=== PATIENT | male | born 1960 | race Caucasian/White ===

== ENCOUNTER 2024-08-26 20:53 | Emergency (ER) | payer MEDICARE, OTHER ==
[~2024-08-26] VITALS: Ht 172.7 cm; Wt 79.4 kg
[2024-08-26 21:01] VITALS: BP 150/95
[2024-08-26 22:11] LABS: Source, Urine Clean Catch
[2024-08-26 22:13] LABS: Bilirubin, Urine Neg (Neg); Blood, Urine 3+ (Neg); Glucose Qualitative, Urine 4+ (Neg); Ketones, Urine 1+ (Neg); Leukocyte Esterase, Urine Neg (Neg); Nitrite, Urine Neg (Neg); Protein, Urine Neg (Neg); Urobilinogen, Urine NORM (Normal)
[2024-08-26 22:40] LABS: Appearance, Urine Clear (Clear); Bacteria Not Seen /hpf; Color, Urine Yellow (P-Yellow); Squamous Epithelial Cells Not Seen /hpf (Few); White Blood Cells, Urine Not Seen /hpf (0-5)
== END 2024-08-26 23:50 | disposition home or self-care (01) ==
LOC: ER 20:53
PROVIDERS: Student in an Organized Health Care Education/Training Program
DX: R31.9 Hematuria, unspecified (principal); Z88.5 Allergy status to narcotic agent
CPT/HCPCS: 81001; 99283

== ENCOUNTER 2025-01-06 11:58 | Inpatient (IN) | payer OTHER, MEDICARE ==
[2025-01-06] VITALS (14 sets, daily range): BP systolic 128–165; BP diastolic 89–107
[~2025-01-06] VITALS: Ht 175.3 cm; Wt 86.5 kg
[2025-01-06 13:09] LABS: Hematocrit 54.6 % (37.0-53.0); Hemoglobin 18.7 g/dL (13.5-17.5); Mean Corpuscular HGB Conc 34.2 g/dL (31.5-36.5); Mean Corpuscular Volume 90 fL (80-100); Mean Platelet Volume 10.1 fL (9.1-12.4); Platelet Count 396 K/mm3 (150-400); RDW Coefficient Variation 12.3 % (11.7-14.2); RDW Standard Deviation 40.2 fL (35.1-46.3); Red Blood Cell Count 6.04 M/mm3 (4.30-5.90); White Blood Cell Count 30.21 K/mm3 (4.00-11.30)
[2025-01-06 13:38] LABS: BAND PERCENT MAN 21 % (0-8); BASOPHILS PERCENT MAN 0 % (0-2); EOSINOPHILS PERCENT MAN 0 % (0-6); LYMPHOCYTES ABSOLUTE MAN 4.22 K/mm3 (0.84-5.20); LYMPHOCYTES PERCENT MAN 14 % (21-46); METAMYELOCYTE PERCENT MAN 2 % (0-0); MONOCYTES ABSOLUTE MAN 3.02 K/mm3 (0.16-1.47); MONOCYTES PERCENT MAN 10 % (4-13); NEUTROPHILS ABSOLUTE MAN 22.35 K/mm3 (1.96-9.15); SEG NEUTROPHILS PERCENT MAN 53 % (41-73); TOTAL CELLS COUNTED 100
[2025-01-06 13:43] LABS: Albumin, Blood 2.7 g/dL (3.4-5.0); Albumin/Globulin Ratio 0.4 (0.8-1.8); Beta-hydroxybutyrate 81.8 mg/dL (0.2-2.8); Bilirubin, Total 0.8 mg/dL (0.1-1.0); Bun/Creatinine Ratio 24.1 (12.0-20.0); Calcium, Blood 9.6 mg/dL (8.5-10.1); Creatinine, Blood 1.16 mg/dL (0.60-1.20); Globulin, Blood 6.1 g/dL (2.2-4.0); Potassium, Blood 3.6 mmol/L (3.5-5.5); Total Protein, Blood 8.8 g/dL (6.4-8.2)
[2025-01-06] MEDS ORDERED: CefTRIAXone Sodium 2,000 MG in NS 100 ML IV ONE (15:05)
[2025-01-06] MEDS ORDERED: Azithromycin 500 MG in NS 250 ML IV ONE (15:05)
[2025-01-06] MEDS ORDERED: NS 1,000 ML IV SCH ×2 (15:05→16:00)
[2025-01-06] MEDS ORDERED: Ipratropium/Albuterol SulF 2.5-0.5MG/3 ML Amp INH ONE (15:05)
[2025-01-06 15:31] LABS: pH Blood Venous 7.03 (7.34-7.37)
[2025-01-06 15:32] LABS: PCO2 Venous 33.7 mmHg (38-42)
[2025-01-06 15:33] LABS: Bicarbonate Venous 10.1 mmol/L (24.0-30.0)
[2025-01-06] MEDS ORDERED: Potassium Chl 20MEQ/Water100ML 100 ML IV SCH (15:40)
[2025-01-06] MEDS ORDERED: NS KCL 40 mEq 1,000 ML IV SCH (15:45)
[2025-01-06] MEDS ORDERED: Insulin Human Regular 100 UNIT in NS 100 ML IV SCH (15:45)
[2025-01-06] MEDS ORDERED: Potassium Chloride 40 MEQ in NS 250 ML IV ONE (15:50)
[2025-01-06] MEDS ORDERED: D5W-1/2NS KCl 20mEq 1,000 ML IV SCH (15:55)
[2025-01-06 15:59] LABS: CORONAVIRUS COVID-19 AG Negative (NEGATIVE); INFLUENZA A AG Negative (NEGATIVE); INFLUENZA B AG Negative (NEGATIVE)
[2025-01-06 16:01] LABS: Phosphorus, Blood 6.6 mg/dL (2.5-4.9)
[2025-01-06] MEDS ORDERED: Lactated Ringer's 1,000 ML IV SCH (16:05)
[2025-01-06] MEDS ORDERED: Meropenem 2,000 MG in NS 250 ML IV SCH (16:15)
[2025-01-06] MEDS ORDERED: Vancomycin HCL 2,000 MG in NS 500 ML IV ONE (16:20)
--- NOTE | 2025-01-06 16:22 | NUR ---
Pt. is awake in bed in ER. Family is at bedside and welcomed my visit. Facilitated a short life review. Family verbalized that they have been wating for several hours. Seek to normalize the Pt. experience. Prayed with the Pt. Family verbalized gratitude for the spiritual care visit. Family verbalized an expectation of being admitted to ICU. Will remain available to the Pt. and family.
[2025-01-06] MEDS ORDERED: Sodium Bicarb 8.4% 1 MEQ/ML 50 ML Vial IV ONE (17:00)
[2025-01-06 17:11] LABS: Source, Urine Clean Catch
[2025-01-06] MEDS ORDERED: FLU VACC TS2024-25(6MOS UP)/PF 45 MCG/0.5 ML SYRINGE IM ONE (17:15)
[2025-01-06 17:24] LABS: Appearance, Urine Clear (Clear); Bilirubin, Urine Neg (Neg); Blood, Urine 3+ (Neg); Glucose Qualitative, Urine 4+ (Neg); Ketones, Urine 3+ (Neg); Leukocyte Esterase, Urine Neg (Neg); Nitrite, Urine Neg (Neg); Protein, Urine 2+ (Neg); Specific Gravity, Urine 1.015 (1.003-1.022); Urobilinogen, Urine NORM (Normal)
[2025-01-06 18:08] LABS: Color, Urine Pale Yellow (P-Yellow)
[2025-01-06 18:09] LABS: Bacteria Few /hpf; Granular Casts 0-2 /lpf (0); Hyaline Casts 0-2 /lpf (0-2); Squamous Epithelial Cells Few /hpf (Few); White Blood Cells, Urine 0-2 /hpf (0-5)
[2025-01-06] MEDS ORDERED: Albuterol 2.5 MG/3 ML VIAL INH ONE (19:05)
[2025-01-06] MEDS ORDERED: Clindamycin 900mg in D5W 50ML 50 ML IV ONE (19:05)
[2025-01-06 19:11] LABS: Base Excess Venous -12.3 mmol/L; PCO2 Venous 44.8 mmHg (38-42)
[2025-01-06 19:12] LABS: pH Blood Venous 7.17 (7.34-7.37)
[2025-01-06] MEDS ORDERED: Lactated Ringer's 1,000 ML IV ONE ×2 (20:45→20:55)
[2025-01-06] MEDS ORDERED: FentaNYL Citrate 50 MCG/ML 2 ML Injection ONE (20:57)
[2025-01-06 21:00] LABS: Adenovirus DNA Not Detected (NOT DETECT); Chlamydia pneumonia Not Detected (NOT DETECT); Human Coronavirus RNA Not Detected (NOT DETECT); Human Metapneumovirus RNA Not Detected (NOT DETECT); Influenza virus B RNA Not Detected (NOT DETECT); Legionella pneumophila Not Detected (NOT DETECT); Mycoplasma pneumoniae Not Detected (NOT DETECT); Parainfluenza virus RNA Not Detected (NOT DETECT); Respiratory syncytial Vir RNA Not Detected (NOT DETECT); Rhinovirus+Enterovirus RNA Not Detected (NOT DETECT); Staphylococcus aureus DNA Detected Bin >=10^7 copy/mL (NOT DETECT); mecA/C and MREJ Resist Gene Detected
[2025-01-06] MEDS ORDERED: Docusate Sodium 100 MG Cap PO SCH (21:00)
[2025-01-06] MEDS ORDERED: Lactobacil 2-S.Thermo-Bifido 1 1 Cap PO SCH (21:00)
[2025-01-06] MEDS ORDERED: Oseltamivir Phosphate 75 MG Cap PO SCH (21:00)
[2025-01-06 21:01] LABS: Acinetobacter baumannii DNA Not Detected copy/mL (NOT DETECT); Enterobacter cloacae DNA Not Detected copy/mL (NOT DETECT); Escherichia coli DNA Not Detected copy/mL (NOT DETECT); Haemophilus influenzae DNA Not Detected copy/mL (NOT DETECT); Klebsiella aerogenes DNA Not Detected copy/mL (NOT DETECT); Klebsiella oxytoca DNA Not Detected copy/mL (NOT DETECT); Klebsiella pneumoniae DNA Not Detected copy/mL (NOT DETECT); Moraxella catarrhalis DNA Not Detected copy/mL (NOT DETECT); Proteus sp DNA Not Detected copy/mL (NOT DETECT); Pseudomonas aeruginosa DNA Not Detected copy/mL (NOT DETECT); Serratia marcescens DNA Not Detected copy/mL (NOT DETECT); Streptococcus agalactiae DNA Not Detected copy/mL (NOT DETECT); Streptococcus pneumoniae DNA Not Detected copy/mL (NOT DETECT); Streptococcus pyogenes DNA Not Detected copy/mL (NOT DETECT)
[2025-01-06] MEDS ORDERED: FentaNYL Citrate 50 MCG/ML 2 ML Injection IV ONE (21:55)
[2025-01-06] MEDS ORDERED: FentaNYL Citrate 50 MCG/ML 2 ML Injection IV PRN (21:55)
[2025-01-06 22:10] LABS: Bun/Creatinine Ratio 28.9 (12.0-20.0); Calcium, Blood 8.6 mg/dL (8.5-10.1); Creatinine, Blood 1.14 mg/dL (0.60-1.20); Potassium, Blood 3.7 mmol/L (3.5-5.5)
[2025-01-06 23:04] LABS: Albumin, Body Fluid 2.2 g/dL; Glucose, Body Fluid 184 mg/dL; Triglycerides, Body Fluid 64 mg/dL
[2025-01-07] VITALS (60 sets, daily range): BP systolic 100–173; BP diastolic 57–102
[2025-01-07 00:14] LABS: Protein, Body Fluid 5.5 g/dL
[2025-01-07 00:18] LABS: Automated BF RBC Count 0.067 M/mm3 (0-0)
[2025-01-07 00:19] LABS: Body Fluid WBC Count 101720 /mm3 (0-999); RBC Count, Body Fluid 67000 /mm3 (0-0)
[2025-01-07 00:54] LABS: Lactate Dehydrogenase, Body Fl 6121 U/L
[2025-01-07 01:06] LABS: Appearance, Body Fluid Turbid (Clear); Color, Body Fluid Yellow (None-Yellow); Total Cell Count, Body Fluid 100
[2025-01-07] MEDS ORDERED: Clindamycin 900mg in D5W 50ML 50 ML IV SCH (01:30)
[2025-01-07 02:25] LABS: Magnesium, Blood 2.3 mg/dL (1.6-2.4)
--- NOTE | 2025-01-07 02:41 | NUR ---
ADMIT 2029 RECEIVED PT FROM ED VIA STRETCHER, PT TRANSFERRED TO ICU BED ROOM 7, TACHYCARDIC 115-140s, HYPERTENSIVE, AFEBRILE, TACHYPNEIC RESP RATE 38-50s WITH NOTED LABORED BREATHING, ABD AND SHOULDER ACCESSORY MUSCLE USE, ON BIPAP FIO2 40%, SPO2>90%, INSULIN INFUSING AT 3.8 UNITS/HR, D4 1/2 NS WITH 20 KCL INFUSING AT 150 ML/HR DR MCMAHON AT BEDSIDE 2044 LR STARTED AND INFUSING WIDE OPEN PER DR MCMAHON 2099 PT MEDICATED WITH 25 MCG FENTANYL IVP PRIOR TO THORACENTESIS WITH CHEST TUBE PLACEMENT [address] MCMAHON TO LEFT CHEST WITH NOTED MILKY YELLOW DRAINAGE, PT HUA WELL 2123 1000 ML MILKY YELLOW DRAINAGE NOTED IN CHEST TUBE CANNISTER, CXR DONE AT THIS TIME, CHEST TUBE DRAINANGE SENT TO LAB PER DR MCMAHON 2199 LR COMPLETED 2299 PT INCONTINENT OF URINE, GOWN AND SHEETS CHANGED, CONDOMN CATH PLACED 44 PT PULLED OFF CONDOM CATH AND INCONTINENT OF URINE, PULLED OFF BIPAP AND YELLING OUT "DAMN IT" GOWN AND SHEETS CHANGED, MALE PUREWICK PLACED AT THIS TIME 0130 PT PULLED OFF BIPAP AND YELLING FOR SOMETHING TO DRINK, EXPLAINED DKA PROTOCOL AND ORDERS FOR NPO, PT REFUSING TO PUT BIPAP MASK BACK ON WITHOUT 1/2 GLASS OF WATER TO DRINK, O2 SAT 87%, PT GIVEN MOISTENED MOUTH SWABS X2 AND THEN AGREED TO PUT BIPAP BACK ON
[2025-01-07 02:45] LABS: Bun/Creatinine Ratio 34.4 (12.0-20.0); Calcium, Blood 8.7 mg/dL (8.5-10.1); Creatinine, Blood 0.79 mg/dL (0.60-1.20); Potassium, Blood 3.3 mmol/L (3.5-5.5)
[2025-01-07 02:46] LABS: Phosphorus, Blood 0.9 mg/dL (2.5-4.9)
[2025-01-07] MEDS ORDERED: Sodium Phosphate 30 MM in Dextrose 5% 500 ML IV ONE (03:15)
--- NOTE | 2025-01-07 06:15 | NUR ---
UPDATE PT RESTING IN BED WITH EYES CLOSED ON BIPAP FIO2 40%, SPO2 >90%, PT REMAINS TACHYPNEIC WITH LESS EFFORT NOTED, RESP RATE 28-40s, TACHYCARDIC 118-130s, BP STABLE MAP >65, LEFT CHEST TUBE PATENT AND DRAINING MILKY YELLOW DRAINAGE, DRESSING CDI, POWERGLIDE TO LEFT UPPER ARM PATENT, PIV TO RIGHT AC AND RIGHT FOREARM PATENT, INSULIN INFUSING PER DKA MANAGEMENT, D5 1/2 NS WITH 20 KCL INFUSING AT 150 ML/HR, SODIUM PHOSPHATE INFUSING PER EMAR FOR PHOSPHATE REPLACEMENT, MALE PUREWICK IN PLACE AND PATENT WITH NOTED DARK CLOUDY URINE IN CANNISTER,PT REMAINS ALERT AND ORIENTED WHEN AWAKE, AROUSES EASILY TO VERBAL STIMULI SIDE RAILS UP X2, CALL LIGHT IN REACH
[2025-01-07 06:16] LABS: Hematocrit 42.4 % (37.0-53.0); Hemoglobin 15.5 g/dL (13.5-17.5); Mean Corpuscular HGB 30.8 pg (26.0-34.0); Mean Corpuscular HGB Conc 36.6 g/dL (31.5-36.5); Mean Platelet Volume 9.7 fL (9.1-12.4); Platelet Count 310 K/mm3 (150-400); RDW Coefficient Variation 12.2 % (11.7-14.2); Red Blood Cell Count 5.04 M/mm3 (4.30-5.90); White Blood Cell Count 13.08 K/mm3 (4.00-11.30)
[2025-01-07 06:32] LABS: Albumin, Blood 1.8 g/dL (3.4-5.0); Albumin/Globulin Ratio 0.5 (0.8-1.8); Bilirubin, Total 0.4 mg/dL (0.1-1.0); Bun/Creatinine Ratio 30.1 (12.0-20.0); Calcium, Blood 8.6 mg/dL (8.5-10.1); Creatinine, Blood 0.83 mg/dL (0.60-1.20); Globulin, Blood 3.8 g/dL (2.2-4.0); Magnesium, Blood 2.5 mg/dL (1.6-2.4); Phosphorus, Blood 2.1 mg/dL (2.5-4.9); Potassium, Blood 3.3 mmol/L (3.5-5.5)
[2025-01-07 06:35] LABS: Total Protein, Blood 5.6 g/dL (6.4-8.2)
[2025-01-07 06:39] LABS: Mean Corpuscular Volume 84 fL (80-100)
[2025-01-07] MEDS ORDERED: Potassium Chl 20MEQ/Water100ML 100 ML IV SCH (06:45)
[2025-01-07 07:29] LABS: BAND PERCENT MAN 48 % (0-8); BASOPHILS PERCENT MAN 0 % (0-2); EOSINOPHILS PERCENT MAN 0 % (0-6); LYMPHOCYTES ABSOLUTE MAN 2.35 K/mm3 (0.84-5.20); LYMPHOCYTES PERCENT MAN 18 % (21-46); METAMYELOCYTE ABSOLUTE MAN 0.39 K/mm3 (0.00-0.00); METAMYELOCYTE PERCENT MAN 3 % (0-0); MONOCYTES ABSOLUTE MAN 0.91 K/mm3 (0.16-1.47); MONOCYTES PERCENT MAN 7 % (4-13); MYELOCYTE ABSOLUTE MAN 0.13 K/mm3 (0.00-0.00); MYELOCYTE PERCENT MAN 1 % (0-0); NEUTROPHILS ABSOLUTE MAN 9.28 K/mm3 (1.96-9.15); SEG NEUTROPHILS PERCENT MAN 23 % (41-73); TOTAL CELLS COUNTED 100
--- NOTE | 2025-01-07 07:56 | NUR ---
0730 assumed pt care PATIENT ALERT AND ORIENTED, PT ON BIPAP RR HIGH 30'S. PT HAS IV FLUIDS WITH POTASSIUM AND HE IS GETTING EXTRA POTASSIUM CHL IV ALONG WITH SODIUM PHOS. PT IS ON AN INSULIN GTT GLUCOSE LOW 200'S AND RATE DOWN FROM 6.8 TO 5.1 U/HR PT HAS PURWICK ON FOR INCONTINENCE AND A CHEST TUBE TO LEFT CHEST WALL WITH YELLOW THICK OUTPUT. PT COMPLAINS OF MILD PAIN TO RIBS/CHEST PAINTING. HE DOES HAVE A VERY COURSE COUGH AND COURSE LUNG SOUNDS T/O. PT IS TACHYCARDIC AT 130 SINUS HOWEVER AND BP MAP GREATER THAN 65.
[2025-01-07] MEDS ORDERED: Vancomycin HCL 1,000 MG in NS 250 ML IV SCH ×2 (08:00→17:00)
[2025-01-07] MEDS ORDERED: Enoxaparin 40 MG/0.4 ML SYR SC SCH (09:00)
[2025-01-07 09:19] LABS: Bicarbonate Venous 20.7 mmol/L (24.0-30.0); pH Blood Venous 7.39 (7.34-7.37)
[2025-01-07 09:20] LABS: Base Excess Venous -5.7 mmol/L
[2025-01-07] MEDS ORDERED: Alteplase 1 MG/ML 10 MG,NS 30 ML in Syringe 1 SYR XX SCH (11:00)
[2025-01-07] MEDS ORDERED: Dornase Alfa 5 MG,NS 25 ML in Syringe 1 SYR XX SCH (11:00)
[2025-01-07 11:49] LABS: Calcium, Blood 7.8 mg/dL (8.5-10.1); Creatinine, Blood 0.8 mg/dL (0.60-1.20); Potassium, Blood 3.9 mmol/L (3.5-5.5)
[2025-01-07] MEDS ORDERED: Insulin Glargine-Yfgn 100 Unit/mL 3 ML SYR SC SCH (14:00)
[2025-01-07] MEDS ORDERED: Insulin Human Lispro 100 Units/ML 3ML Syringe SC SCH (16:30)
[2025-01-07 17:26] LABS: Bun/Creatinine Ratio 28.4 (12.0-20.0); Calcium, Blood 7.8 mg/dL (8.5-10.1); Creatinine, Blood 0.77 mg/dL (0.60-1.20); Potassium, Blood 3.6 mmol/L (3.5-5.5)
--- NOTE | 2025-01-07 18:30 | NUR ---
END OF SHIFT NOTE: PT HAS HAD A FULL DAY. HE STARTED THE DAY ON AN INSULIN GTT AND GETTING IV FLUIDS WITH POTASSIUM AND GETTING EXTRA POTASSIUM CHLORIDE AND SODIUM PHOS. PT IS NOW OFF THE INSULIN GTT AND AND ON A SLIDING SCALE (LOW). PT HAS GOTTEN MULTIPLE ANTIBIOTICS TODAY T/O THE DAY. PT WAS ABLE TO GET OFF THE BIPAP AND IS NOW ON AIRVO 50L48% RR STILL IN THE 30'S. HIS CHEST TUBE WAS FLUSHED TODAY BY DR MCMAHON ONCE WITH 40ML OF NORMAL SALINE AND TWICE WITH TPA. ( SEE MAR ) PT HAD THICK CREAMY SEROUS OUTPUT FROM THE CHEST TUBE AND THEN AFTER THE TPA WAS INFUSED THE THE OUTPUT IS NOW MORE PINK IN COLOR. PT'S SPUTUM WAS SENT OFF THIS EVENING TO LAB. OUTPUT HAS BEEN GOOD FROM MALE SEVEN. FAMILY WAS IN AT BEDSIDE TODAY AND SISTER OUT OF TOWN WAS UPDATED.
--- NOTE | 2025-01-07 21:01 | NUR ---
ASSUMPTION OF CARE ASSUMED CARE OF PATIENT AT APPROXIMATELY 2000 FROM [facility] RN. PT RESTING IN BED, ALERT AND ORIENTED X4. PT ANSWERS QUESTIONS APPROPRIATLEY, FOLLOWS DIRECTION WHEN PROMPTED AND IS ABLE TO MAKE HIS NEEDS KNOWN. PT WEAK BUT MOVES EXTREMITIES EQUALLY BILATERALLY. HR 110'S SINUS, MAP >65. CHEST TUBE SECURED IN PLACE TO LEFT CHEST WITH SEROSANGUINEOUS DRAINAGE LARGE FLESHY LIKE SEDIMENT NOTED IN TUBE, NO CREPITUS NOTED. PT ON AIRVO 50L 37%, OXYGEN SATURATION >92%. PT LUNG SOUNDS COURSE THROUGHOUT, WET SOUNDING COUGH, SOME RED TINGED SPUTUM NOTED IN EMESIS BAG. ABDOMEN SOFT, BOWEL TONES ACTIVE THROUGHOUT, TENDER TO PALPATION. MALE PUREWICK IN PLACE PATENT DRAINING YELLOW URINE. PIV IN PLACE TO LFA, RFA AND RAC. POWERGLIDE IN PLACE TO ESTELLA, NS INFUSING TKO. BED IN LOWEST POSITION, CALL LIGHT WITHIN REACH, CARE CONTINUES.
[2025-01-07 23:05] LABS: Albumin, Blood 1.5 g/dL (3.4-5.0); Albumin/Globulin Ratio 0.4 (0.8-1.8); Bilirubin, Total 0.5 mg/dL (0.1-1.0); Bun/Creatinine Ratio 26.5 (12.0-20.0); Calcium, Blood 8.3 mg/dL (8.5-10.1); Creatinine, Blood 0.87 mg/dL (0.60-1.20); Globulin, Blood 3.8 g/dL (2.2-4.0); Potassium, Blood 3.5 mmol/L (3.5-5.5); Total Protein, Blood 5.3 g/dL (6.4-8.2)
[2025-01-08] VITALS (43 sets, daily range): BP systolic 101–155; BP diastolic 54–117
[2025-01-08] MEDS ORDERED: Lactated Ringer's 1,000 ML IV SCH (00:25)
--- NOTE | 2025-01-08 05:47 | NUR ---
SHIFT SUMMARY NO ACUTE CHANGES THIS SHIFT. PT CONTINUES TO REST IN BED, SLEEPING BUT AROUSABLE. PT ORIENTED X4, ANSWERS QUESTIONS APPROPRIATLEY, FOLLOWS DIRECTION WHEN PROMPTED AND IS ABLE TO MAKE HIS NEEDS KNOWN. PT MOVES EXTREMITIES EQUALLY BILATERALLY. PT IRRITABLE AT TIMES. HR 90-110'S SINUS, MAP >65. CHEST TUBE IN PLACE TO LEFT CHEST, SECURED IN PLACE. SEROSANGUINEOUS DRAINAGE WITH FLESHY LIKE SEDIMENT NOTED. NO CREPITUS. PT REMAINS ON AIRVO 50L 37%, OXYGEN SATURATION >95%. PT HAS WET SOUNDING COUGH. ABDOMEN SOFT, BOWEL TONES ACTIVE THROUGHOUT, TENDER ON PALPATION. MALE PUREWICK IN PLACE PATENT DRAINING YELLOW URINE. PIV IN PLACE TO LFA, RFA, AND RAC. POWERGLIDE IN PLACE TO ESTELLA, LR INFUSING AT 100MLS/HR. BED IN LOWEST POSITION, CALL LIGHT WITHIN REACH, CARE CONTINUES.
[2025-01-08 06:54] LABS: Hematocrit 35.6 % (37.0-53.0); Mean Corpuscular HGB 31.1 pg (26.0-34.0); Mean Corpuscular HGB Conc 36.5 g/dL (31.5-36.5); Mean Corpuscular Volume 85 fL (80-100); Mean Platelet Volume 9.4 fL (9.1-12.4); Platelet Count 259 K/mm3 (150-400); RDW Coefficient Variation 12.7 % (11.7-14.2); RDW Standard Deviation 39.5 fL (35.1-46.3); Red Blood Cell Count 4.18 M/mm3 (4.30-5.90)
[2025-01-08 07:13] LABS: Albumin, Blood 1.4 g/dL (3.4-5.0); Albumin/Globulin Ratio 0.4 (0.8-1.8); Bilirubin, Total 0.8 mg/dL (0.1-1.0); Bun/Creatinine Ratio 34.7 (12.0-20.0); Calcium, Blood 8.1 mg/dL (8.5-10.1); Creatinine, Blood 0.75 mg/dL (0.60-1.20); Globulin, Blood 3.8 g/dL (2.2-4.0); Magnesium, Blood 2.4 mg/dL (1.6-2.4); Phosphorus, Blood 2.1 mg/dL (2.5-4.9); Potassium, Blood 3.4 mmol/L (3.5-5.5); Total Protein, Blood 5.2 g/dL (6.4-8.2)
[2025-01-08 07:14] LABS: BAND PERCENT MAN 10 % (0-8); BASOPHILS PERCENT MAN 0 % (0-2); EOSINOPHILS PERCENT MAN 0 % (0-6); LYMPHOCYTES ABSOLUTE MAN 1.84 K/mm3 (0.84-5.20); LYMPHOCYTES PERCENT MAN 8 % (21-46); MONOCYTES PERCENT MAN 0 % (4-13); NEUTROPHILS ABSOLUTE MAN 21.25 K/mm3 (1.96-9.15); SEG NEUTROPHILS PERCENT MAN 82 % (41-73); TOTAL CELLS COUNTED 100
[2025-01-08 07:21] LABS: Vancomycin, Trough 17.4 ug/mL (5.0-10.0)
--- NOTE | 2025-01-08 07:29 | NUR ---
PT QUIET DURING BSR, BEGINS HOLLERING OUT. REQUESTED WATER CLOSE BY, PREFERS TO REMAIN LAYING FLAT. PT EDUCATED ABOUT 50L OXYGEN AND LYING FLAT, PT AGITATED AND AGGRESSIVELY VERBAL, ENCOURAGED TO USE CALL LIGHT, CONTINUES TO ADAMANTLY STATE HIS CALL LIGHT DOES NOT WORK. HE IS GIVEN CALL LIGHT AND IT IS WORKING. PT ENCOURAGED TO BE KIND AND NOT VERBALLY AGGRESSIVE TO STAFF.
[2025-01-08] MEDS ORDERED: Potassium Chloride 40 MEQ in NS 250 ML IV ONE (07:55)
[2025-01-08] MEDS ORDERED: Lactobacil 2-S.Thermo-Bifido 1 1 Cap PO SCH (09:00)
[2025-01-08] MEDS ORDERED: Insulin Glargine-Yfgn 100 Unit/mL 3 ML SYR SC SCH (09:00)
--- NOTE | 2025-01-08 10:45 | NUR ---
PT HAS BEEN MUCH MORE COOPERATIVE AND KIND. HE IS WORKING WITH STAFF AND TRYING TO ASSIST IN HIS CARE.
[2025-01-08] MEDS ORDERED: Potassium Phos/Sodium Phos 250 MG PACK PO SCH (12:00)
[2025-01-08] MEDS ORDERED: Thiamine HCl 100 MG Tab PO SCH (14:45)
[2025-01-08] MEDS ORDERED: Multivitamins 1 Tab PO SCH (14:45)
[2025-01-08] MEDS ORDERED: Alteplase 1 MG/ML 10 MG,NS 30 ML in Syringe 1 SYR XX SCH (16:50)
[2025-01-08] MEDS ORDERED: Dornase Alfa 5 MG,NS 25 ML in Syringe 1 SYR XX SCH (16:50)
--- NOTE | 2025-01-08 18:25 | NUR ---
GENE HAS REMAINED ON THE AIRVO THROUGHOUT THE DAY, THE LITERS TITRATED DOWN. HE CONTINUES TO HAVE COARSE BREATH SOUNDS, LEFT WORSE THAN RIGHT, LEFT SIDE REMAINS TENDER TO TOUCH, C/O BRUISING FEELING. PT ON THE BEDPAN T/O THE DAY WITH MANY LIQUID STOOLS TODAY. PT TRIED TO EAT, TOOK IN SOME SUPPLEMENTAL DRINKS, PUREWICK IN PLACE WITH GOOD URINE OUTPUT. JUST COMPLAINTS OF FEELING UNWELL T/O THE DAY. IV FLUIDS CONTINUE.
[2025-01-08] MEDS ORDERED: FentaNYL Citrate 50 MCG/ML 2 ML Injection IV PRN (19:20)
--- NOTE | 2025-01-08 22:55 | NUR ---
PT LYING IN BED, SOMNOLENT, AWAKES EASILY TO VOICE AND IS ORIENTED TO ALL. HR NSR WITH OCCASIONAL CREEPING ABOVE 100 BPM. BP STABLE. SATURATION > 95% ON 45L/MIN AND 36% FIO2 AIRVO. PT IS TACHYPNEIC AT 31/MIN. OCCASIONAL COUGH WITH THICK BROWN SPUTUM. CHEST TUBE IN PLACE TO SUCTION. UNCLAMPED AT 1830, ALREADY 200ML SEROSANGUINOUS FLUID OUT. NO EVIDENCE OF CREPITUS OR C TUBE LEAK. PT C/O OF PAIN AND ASKS FOR PAIN MEDICATION THAT WILL BE GIVEN TO HIM WHEN AVAILABLE. PT DOES NOT WANT HEAD OF BED ELEVATED. REPORTS OF FREQUENT LOOSE STOOL DURING DAY. NO AB PAIN, N/V NOW. PUREWICK IN PLACE TO SUCTION. LR INFUSING AT 75/MIN. PT HAS CALL LIGHT HANDY.
[2025-01-09] VITALS (31 sets, daily range): BP systolic 127–151; BP diastolic 68–878
[2025-01-09] MEDS ORDERED: Benzonatate 100 MG Cap PO PRN (03:25)
[2025-01-09 04:39] LABS: Hemoglobin 12.6 g/dL (13.5-17.5); Mean Corpuscular Volume 86 fL (80-100); Mean Platelet Volume 9.5 fL (9.1-12.4); Platelet Count 243 K/mm3 (150-400); RDW Standard Deviation 40.6 fL (35.1-46.3); Red Blood Cell Count 4.07 M/mm3 (4.30-5.90)
[2025-01-09 05:05] LABS: Bun/Creatinine Ratio 39.7 (12.0-20.0); Calcium, Blood 7.9 mg/dL (8.5-10.1); Creatinine, Blood 0.68 mg/dL (0.60-1.20); Magnesium, Blood 2.2 mg/dL (1.6-2.4); Phosphorus, Blood 2.3 mg/dL (2.5-4.9); Potassium, Blood 3.2 mmol/L (3.5-5.5)
[2025-01-09 06:15] LABS: BAND PERCENT MAN 6 % (0-8); BASOPHILS PERCENT MAN 0 % (0-2); EOSINOPHILS PERCENT MAN 0 % (0-6); LYMPHOCYTES ABSOLUTE MAN 3.36 K/mm3 (0.84-5.20); LYMPHOCYTES PERCENT MAN 13 % (21-46); MONOCYTES ABSOLUTE MAN 0.51 K/mm3 (0.16-1.47); MONOCYTES PERCENT MAN 2 % (4-13); NEUTROPHILS ABSOLUTE MAN 22.01 K/mm3 (1.96-9.15); SEG NEUTROPHILS PERCENT MAN 79 % (41-73); TOTAL CELLS COUNTED 100
[2025-01-09] MEDS ORDERED: Potassium Chloride 20 MEQ TabCR PO ONE ×2 (06:25→07:00)
--- NOTE | 2025-01-09 07:21 | NUR ---
SHIFT SUMMARY PT LYING IN BED SLEEPING SUPINE, IN NO APPARENT DISTRESS. PAIN CONTROL WAS AN ISSUE TOWARDS END OF SHIFT, FOLLOWING AN AGRESSIVE COUGHING EPISODE. PT WAS HOLLERING IN PAIN UNTIL FENTANYL COULD BE GIVEN. CHEST TUBE WAS CHECKED AND NO SIGNS OF LEAKAGE OR BLOCKAGE; BREATHS SOUNDS AUDIBLE IN ALL [place]. 900ML OUTPUT DURING SHIFT. CHEST TUBE TRIES TO CLOT SO FREQUENT MOVEMENT HELPED DECREASE THE LIKELIHOOD. SINUS RHYTHM ALL NIGHT 80-100 BPM WITH STABLE BP. AIRVO WAS DECREASED TO 40L/MIN AND 36% FIO2 TOWARDS END OF SHIFT. COUGH PRODUCTIVE OF THICK BROWN MATTER. NO BM DURING SHIFT. NO N/V. PUREWICK IN PLACE TO SUCTION, DRAINED 1175ML DURING SHIFT. LR INFUSING AT 100ML/HR. PT HAS CALL LIGHT NEARBY. REPORT GIVEN TO DAY RN.
[2025-01-09] MEDS ORDERED: Ipratropium/Albuterol SulF 2.5-0.5MG/3 ML Amp INH SCH (08:45)
[2025-01-09] MEDS ORDERED: Potassium Phosphate,Monobasic 500 MG Tablet PO SCH (09:00)
[2025-01-09 15:24] LABS: Vancomycin, Trough 17.5 ug/mL (5.0-10.0)
[2025-01-09] MEDS ORDERED: OxyCODONE 5 mg/Acetamin 325 mg TABLET PO PRN (15:25)
[2025-01-09] MEDS ORDERED: Piperacillin/Tazobactam Sod 3.375 GM in NS 100 ML IV SCH (18:00)
--- NOTE | 2025-01-09 18:52 | NUR ---
AROUND 1500 A LARGE RED AREA ON THE LEFT FLANK FROM HIP TO AXILLA IS NOTED. TENDER TO TOUCH, NOT EVIDENT IN EARLIER ASSESSMENT. MANAGER RESEARCH AND DEVELOPMENT CALLED TO ROOM, THEN ASKED TO ASSESS. PT TAKEN TO CT SCAN WITH MANAGER RESEARCH AND DEVELOPMENT AND THIS RN. PT TOLERATED WELL. PT RETURNED TO ROOM, CAME TO SEE PATIENT ON CONSULTATION OF . PT ASKED THAT HIS SISTER BE UPDATED ON THE SITUATION BEFORE MAKING ANY DECISIONS. SISTER AGREES THAT HE SHOULD CONTINUE TO RECEIVE TREATMENT. PT HAS ONLY HAD ONE BM THIS SHIFT. HAS TOLERATED FOOD INTAKE AND HAS BEEN COOPERATIVE WITH CARE. DID IMPROVE ON HIS INCENTIVE SPIROMETER, T-MAX 99.6.
--- NOTE | 2025-01-09 20:56 | NUR ---
ASSUMPTION OF CARE PT LYING IN BED, SOMNOLENT, AWAKES EASILY TO VOICE AND IS ORIENTED TO ALL. HR SINUS TACH 101. BP STABLE. SATURATION > 92% ON 4L. PT IS TACHYPNEIC AT 28/MIN. OCCASIONAL COUGH WITH THICK BROWN SPUTUM. CHEST TUBE IN PLACE TO SUCTION. RED, WARM RASH SURROUNDING C TUBE INSERTION THAT IS OUTLINED IN MARKER. CT SCAN SHOWS NO EVIDENCE OF GAS, SURGEON THINKS TPA SIDE EFFECT, SO I WILL REGULARLY MOVE TUBE TO HELP PREVENT CLOTTING. NO EVIDENCE OF CREPITUS OR C TUBE LEAK. PT C/O OF PAIN AND ASKS FOR PAIN MEDICATION THAT WILL BE GIVEN TO HIM WHEN AVAILABLE. REPORTS OF FREQUENT LOOSE STOOL X 2 DURING DAY. NO AB PAIN, N/V NOW. PUREWICK IN PLACE TO SUCTION. LR INFUSING AT 100/MIN. PT HAS CALL LIGHT HANDY BUT HAS NOT LEARNED TO USE IT. HIS CALLS FOR HELP CAN BE HEARD FROM NURSES STATION.
[2025-01-10] VITALS (11 sets, daily range): BP systolic 129–175; BP diastolic 66–109
[2025-01-10 03:53] LABS: Hematocrit 36.9 % (37.0-53.0); Mean Corpuscular HGB 30.7 pg (26.0-34.0); Mean Corpuscular HGB Conc 35.2 g/dL (31.5-36.5); Mean Corpuscular Volume 87 fL (80-100); Mean Platelet Volume 9.5 fL (9.1-12.4); Platelet Count 268 K/mm3 (150-400); RDW Standard Deviation 41.1 fL (35.1-46.3); Red Blood Cell Count 4.23 M/mm3 (4.30-5.90)
[2025-01-10 04:15] LABS: Albumin, Blood 1.2 g/dL (3.4-5.0); Albumin/Globulin Ratio 0.3 (0.8-1.8); Bilirubin, Total 0.6 mg/dL (0.1-1.0); Bun/Creatinine Ratio 37.2 (12.0-20.0); Calcium, Blood 7.7 mg/dL (8.5-10.1); Creatinine, Blood 0.67 mg/dL (0.60-1.20); Globulin, Blood 3.5 g/dL (2.2-4.0); Magnesium, Blood 2.1 mg/dL (1.6-2.4); Phosphorus, Blood 3.3 mg/dL (2.5-4.9); Potassium, Blood 3.4 mmol/L (3.5-5.5); Total Protein, Blood 4.7 g/dL (6.4-8.2)
[2025-01-10 05:16] LABS: BAND PERCENT MAN 2 % (0-8); BASOPHILS PERCENT MAN 0 % (0-2); EOSINOPHILS PERCENT MAN 0 % (0-6); LYMPHOCYTES ABSOLUTE MAN 3.31 K/mm3 (0.84-5.20); LYMPHOCYTES PERCENT MAN 12 % (21-46); MONOCYTES ABSOLUTE MAN 0.55 K/mm3 (0.16-1.47); MONOCYTES PERCENT MAN 2 % (4-13); MYELOCYTE ABSOLUTE MAN 0.55 K/mm3 (0.00-0.00); MYELOCYTE PERCENT MAN 2 % (0-0); NEUTROPHILS ABSOLUTE MAN 23.18 K/mm3 (1.96-9.15); SEG NEUTROPHILS PERCENT MAN 82 % (41-73); TOTAL CELLS COUNTED 100
--- NOTE | 2025-01-10 06:00 | NUR ---
SHIFT SUMMARY PT LYING IN BED SLEEPING, IN NO APPARENT DISTRESS. PT SLEPT BETTER TONIGHT THAN LAST NIGHT. OXYCODONE SEEMED SUFFECIENT FOR PAIN CONTROL. 390ML C TUBE OUTPUT DURING SHIFT. CHEST TUBE STILL TRIES TO CLOT SOME. SEROSANGUINOUS FLUID. RASH ON LEFT FLANK HAS STABLIZED AND SHOWS SLIGHT IMPROVEMENT IN ERYTHEMA AND WARMTH. SINUS RHYTHM ALL NIGHT 80-100 BPM WITH STABLE BP. PT SATURATIONS >95% ON 3L NC. COUGH PRODUCTIVE OF THICK BROWN MATTER. NO BM DURING SHIFT. NO N/V. PUREWICK IN PLACE TO SUCTION, DRAINED 1000ML DURING SHIFT. LR INFUSING AT 100ML/HR. PT HAS CALL LIGHT NEARBY. REPORT GIVEN TO DAY RN.
[2025-01-10] MEDS ORDERED: Potassium Chloride 40 MEQ in NS 250 ML IV ONE (07:15)
--- NOTE | 2025-01-10 13:06 | NUR ---
JOSE IS UP IN THE CHAIR, HE WENT TO THE BSC FOR BM, HE STATED THAT HE WAS SURE HE COULDN'T MAKE IT, BUT DID. HIS RED AREA ON THE LEFT FLANK HAS IMPROVED, SWELLING AND TEMPERATURE ARE DOWN. REVIEWED THE SITE, SAID TO NOT USE THE ALTEPLASE/DORNASE ANY MORE AND TO NOT KEEP THE AREA COVERED. HE ASKED THAT JUST THE OPSITE DRESSING BE PLACED OVER THE CHEST TUBE. CONTINUES TO DRAIN SEROSANGUINOUS TO SUCTION. APPETITE IS FAIR, DOESN'T CARE FOR MEALS. TAKING IN WATER AND MILK. ALL PIV'S HAVE BEEN REMOVED, HAS PG IN ESTELLA. COULD USE SOME CONDITIONING EXERCISES. HE CONTINUES WITH COUGH, DRYER THAN PREVIOUS 2 DAYS, CLEAR PRODUCTION, OCC BLOOD TINGE. WILL REMAIN WITH SATS >95 WHEN HE REMOVES HIS OXYGEN.
--- NOTE | 2025-01-10 17:04 | NUR ---
JOSE HAS DONE BETTER THROUGHOUT THE DAY, HE HAS BEEN UP IN THE CHAIR AND TO THE BSC X 2. HE REMAINS WEAK AND UNABLE TO STAND STRAIGHT UP. HIS PUREWICK BEGAN TO LEAK AND HE WAS ADAMANT THAT HE NEEDED IT REPLACED, THAT THERE WAS NOT AN ALTERNATIVE THAT WOULD WORK FOR HIM AND THAT THE MORE WE SUGGESTED THE MORE HE STATED THAT WE WERE NOT LISTENING TO HIM. HE HAD A GOOD BREAKFAST, ATE A FEW BITES OF LUNCH. HE HAD HIS DAUGHTER AND A FRIEND VISIT, HE HAS BEEN TELLING STORIES. HIS CT CONT. TO DRAIN SEROSANGUINOUS FLUID, LESS CLOTS TODAY. THE REDNESS TO THE LEFT FLANK REMAINS IMPROVED, HE REMAINS ON 2L/NC.
--- NOTE | 2025-01-10 19:43 | NUR ---
ASSUMPTION OF CARE PT LYING IN BED SLEEPING, AWAKES EASILY TO VOICE AND IS ORIENTED TO ALL. HR SINUS TACH 101. BP STABLE. SATURATION > 92% ON 2L. PT IS TACHYPNEIC AT 28/MIN. OCCASIONAL COUGH WITH THICK BROWN SPUTUM. CHEST TUBE IN PLACE TO SUCTION. RED, WARM RASH SURROUNDING C TUBE INSERTION THAT IS OUTLINED IN MARKER. CT SCAN SHOWS NO EVIDENCE OF GAS- POTENTIAL TPA SIDE EFFECT/REACTION. NO EVIDENCE OF CREPITUS OR C TUBE LEAK. PT C/O OF PAIN AND ASKS FOR PAIN MEDICATION THAT WILL BE GIVEN TO HIM WHEN AVAILABLE. REPORT LOOSE STOOL X 2 DURING DAY. NO AB PAIN, N/V AT THIS TIME. PUREWICK IN PLACE TO SUCTION. PT HAS CALL LIGHT HANDY AND HAS LEARNED HOW TO USE.
--- NOTE | 2025-01-10 22:10 | NUR ---
THIS RN ASSUMED CARE OF THIS PT AT AROUND 2100. PT IS SLEEPING IN ROOM WITH NO COMPLAINTS AT THIS TIME.
[2025-01-11] VITALS (7 sets, daily range): BP systolic 146–181; BP diastolic 71–85
[2025-01-11 04:28] LABS: Hematocrit 35.4 % (37.0-53.0); Hemoglobin 12.2 g/dL (13.5-17.5); Mean Corpuscular HGB 30.8 pg (26.0-34.0); Mean Corpuscular HGB Conc 34.5 g/dL (31.5-36.5); Mean Corpuscular Volume 89 fL (80-100); Mean Platelet Volume 9.2 fL (9.1-12.4); Platelet Count 274 K/mm3 (150-400); RDW Standard Deviation 42.7 fL (35.1-46.3); Red Blood Cell Count 3.96 M/mm3 (4.30-5.90); White Blood Cell Count 23.07 K/mm3 (4.00-11.30)
[2025-01-11 04:44] LABS: Bun/Creatinine Ratio 22.5 (12.0-20.0); Calcium, Blood 6.9 mg/dL (8.5-10.1); Creatinine, Blood 0.71 mg/dL (0.60-1.20)
[2025-01-11] MEDS ORDERED: Potassium Chloride 20 MEQ TabCR PO SCH (05:00)
[2025-01-11 05:01] LABS: BAND PERCENT MAN 15 % (0-8); BASOPHILS PERCENT MAN 0 % (0-2); EOSINOPHILS ABSOLUTE MAN 0.23 K/mm3 (0.00-0.68); EOSINOPHILS PERCENT MAN 1 % (0-6); LYMPHOCYTES ABSOLUTE MAN 0.46 K/mm3 (0.84-5.20); LYMPHOCYTES PERCENT MAN 2 % (21-46); METAMYELOCYTE ABSOLUTE MAN 0.23 K/mm3 (0.00-0.00); METAMYELOCYTE PERCENT MAN 1 % (0-0); MONOCYTES ABSOLUTE MAN 1.15 K/mm3 (0.16-1.47); MONOCYTES PERCENT MAN 5 % (4-13); NEUTROPHILS ABSOLUTE MAN 20.99 K/mm3 (1.96-9.15); SEG NEUTROPHILS PERCENT MAN 76 % (41-73); TOTAL CELLS COUNTED 100
--- NOTE | 2025-01-11 05:11 | NUR ---
END OF SHIFT NOTE: THIS PT HAD NO ACUTE EVENTS OVERNIGHT AND IS CURRENTLY SLEEPING IN ROOM. PAIN MEDICINE SEEMS TO BE SUFFICIENT FOR PAIN CONTROL AT THIS TIME. HR IS IN 70s, BP 153/73, 95% O2.
--- NOTE | 2025-01-11 05:18 | NUR ---
END OF SHIFT NOTE: PT HAD NO ACUTE EVENTS OVERNIGHT AND HAS BEEN SLEEPING MOST OF NIGHT. SHE DOES NOT COMPLAIN OF PAIN AT THIS TIME AND IS RESTING IN BED CURRENTLY. HR IS IN 80s, BP 120/89, 02 SAT IS 90%
[2025-01-11] MEDS ORDERED: Insulin Human Lispro 100 Units/ML 3ML Syringe SC SCH ×2 (11:30)
[2025-01-11] MEDS ORDERED: Piperacillin/Tazobactam Sod 3.375 GM in NS 100 ML IV ONE (11:30)
[2025-01-11] MEDS ORDERED: Ondansetron HCl 2 MG / ML 2ML Vial IV PRN (14:55)
[2025-01-11] MEDS ORDERED: NS 250 ML IV PRN (15:10)
[2025-01-11] MEDS ORDERED: Piperacillin/Tazobactam Sod 3.375 GM in NS 100 ML IV SCH (16:00)
--- NOTE | 2025-01-11 17:50 | NUR ---
SHIFT SUMMARY PT A&Ox4, CALLS AND COMMUNICATES NEEDS APPROPRIATELY, IRRITABLE AND GRUMPY WITH STAFF BUT COOPERATIVE. BP STABLE, SR-ST 90-100's, DENIES CP/PRESSURE. SpO2> 92% ON RA, REPORTS INTERMITTENT SOB. L CHEST TUBE REMAINS PATENT WITH NO OUTPUT THIS SHIFT, DISCUSSED WITH PHYSICIAN. PT REFUSED TO GET OOB THIS SHIFT AND USED BEDPAN FOR BM. MALE PUREWICK IN PLACE FOR VOIDS. ENCOURAGED COUGH & DEEP BREATHING, PT RELUCTANT D/T PAIN AT CHEST TUBE SITE. Q2 TURNS PROVIDED. NO OTHER EVENTS, WILL REPORT TO ONCOMING RN.
--- NOTE | 2025-01-11 21:02 | NUR ---
ASSUMPTION OF CARE PT LYING IN BED SLEEPING, AWAKES EASILY TO VOICE AND IS ORIENTED TO ALL. HR NSR IN THE 80'S. BP STABLE. SATURATION > 92% ON RA. PT IS MILDLY TACHYPNEIC AT 24/MIN, WITH SHALLOW BREATHING. OCCASIONAL COUGH WITH THICK BROWN SPUTUM. CHEST TUBE IN PLACE TO SUCTION. OUTPUT IS MINIMAL, MAYBE 10-20 IN LAST 24 HRS, AND FLUID IS MOSTLY SEROUS. RED, WARM RASH SURROUNDING C TUBE INSERTION THAT IS OUTLINED IN MARKER. CT SCAN SHOWED NO EVIDENCE OF GAS- POTENTIAL TPA SIDE EFFECT/REACTION. NO EVIDENCE OF CREPITUS OR C TUBE LEAK. NO AB PAIN, N/V AT THIS TIME. PUREWICK IN PLACE TO SUCTION. PT HAS CALL LIGHT HANDY AND HAS LEARNED HOW TO USE.
[2025-01-12 00:41] VITALS: BP 153/85
[2025-01-12 03:51] VITALS: BP 175/88
[2025-01-12 04:17] LABS: BASOPHILS PERCENT AUTO 1 % (0-2); EOSINOPHILS ABSOLUTE AUTO 0.13 K/mm3 (0.00-0.68); EOSINOPHILS PERCENT AUTO 1 % (0-6); Hematocrit 35.1 % (37.0-53.0); Hemoglobin 12.1 g/dL (13.5-17.5); IMMATURE GRAN ABSOLUTE AUTO 1.04 K/mm3 (0.00-0.10); IMMATURE GRAN PERCENT AUTO 6 % (0-1); LYMPHOCYTES PERCENT AUTO 13 % (21-46); MONOCYTES ABSOLUTE AUTO 0.93 K/mm3 (0.16-1.47); MONOCYTES PERCENT AUTO 5 % (4-13); Mean Corpuscular HGB Conc 34.5 g/dL (31.5-36.5); Mean Corpuscular Volume 90 fL (80-100); Mean Platelet Volume 9.2 fL (9.1-12.4); NEUTROPHILS ABSOLUTE AUTO 13.09 K/mm3 (1.96-9.15); NEUTROPHILS PERCENT AUTO 74 % (41-73); Platelet Count 316 K/mm3 (150-400); RDW Standard Deviation 42.7 fL (35.1-46.3); White Blood Cell Count 17.59 K/mm3 (4.00-11.30)
[2025-01-12 04:41] LABS: Bun/Creatinine Ratio 17.2 (12.0-20.0); Calcium, Blood 7.4 mg/dL (8.5-10.1); Creatinine, Blood 0.7 mg/dL (0.60-1.20); Potassium, Blood 3.3 mmol/L (3.5-5.5)
[2025-01-12 05:27] LABS: BAND PERCENT MAN 1 % (0-8); BASOPHILS PERCENT MAN 0 % (0-2); EOSINOPHILS ABSOLUTE MAN 0.17 K/mm3 (0.00-0.68); EOSINOPHILS PERCENT MAN 1 % (0-6); LYMPHOCYTES ABSOLUTE MAN 1.75 K/mm3 (0.84-5.20); LYMPHOCYTES PERCENT MAN 10 % (21-46); METAMYELOCYTE ABSOLUTE MAN 0.35 K/mm3 (0.00-0.00); METAMYELOCYTE PERCENT MAN 2 % (0-0); MONOCYTES ABSOLUTE MAN 1.58 K/mm3 (0.16-1.47); MONOCYTES PERCENT MAN 9 % (4-13); NEUTROPHILS ABSOLUTE MAN 13.72 K/mm3 (1.96-9.15); SEG NEUTROPHILS PERCENT MAN 77 % (41-73); TOTAL CELLS COUNTED 100
--- NOTE | 2025-01-12 05:55 | NUR ---
SHIFT SUMMARY PT LYING IN BED SLEEPING, IN NO APPARENT DISTRESS. PT SLEPT WELL. OXYCODONE SEEMED SUFFECIENT FOR PAIN CONTROL. IT SEEMS PT MAY HAVE THOUGHT THE PAIN MEDICATION WAS SCHEDULED RATHER THAN PRN. NO MEASURABLE CHEST TUBE OUTPUT DURING SHIFT. RASH ON LEFT FLANK SHOWS IMPROVEMENT IN DECREASED ERYTHEMA AND WARMTH. SINUS RHYTHM ALL NIGHT 80-100 BPM WITH STABLE BP TO ELEVATED BP. 0400 SBP WAS 172. OF NOTE, BP'S RUN ON WRISTS WERE NOT ACCURATE. PT SATURATIONS >95% ON 3L NC. COUGH PRODUCTIVE OF THICK BROWN MATTER. NO BM DURING SHIFT. NO N/V. PUREWICK IN PLACE TO SUCTION, DRAINED 1800ML DURING SHIFT. PT HAS CALL LIGHT NEARBY. REPORT GIVEN TO DAY RN.
[2025-01-12] MEDS ORDERED: Potassium Chloride 20 MEQ TabCR PO SCH ×2 (06:40→06:45)
[2025-01-12] MEDS ORDERED: Insulin Human Lispro 100 Units/ML 3ML Syringe SC SCH ×2 (07:30→16:30)
--- NOTE | 2025-01-12 12:17 | NUR ---
ASSUMED CARE OF PATIENT AT APPROXIMATELY 0700. REPORT RECEIVED FROM GENESIS DEGROOT. PT AWAKE IN BED, INTERACTING WITH STAFF APPROPRIATELY DURING BEDSIDE REPORT. CONTINOUS CARDIAC MONITORING IN PLACE SHOWS SR, BP STABLE. ON 2LPM O2 VIA NC WITH SATRUATION > 92%. PUREWICK IN PLACE. RASH TO L FLANK VISUALIZED, REDUCED FROM PREVIOUSLY DRAWN MARGINS. NO ACUTE NEEDS IDENTIFIED AT THIS TIME. SEE SHIFT ASSESSMENT FOR FULL DETAILS.
[2025-01-12 16:26] LABS: Vancomycin, Trough 39.5 ug/mL (5.0-10.0)
[2025-01-12 17:14] LABS: Vancomycin, Trough 19.7 ug/mL (5.0-10.0)
[2025-01-12] MEDS ORDERED: Vancomycin HCL 1,250 MG in NS 250 ML IV SCH (18:00)
--- NOTE | 2025-01-12 18:23 | NUR ---
SHIFT SUMMARY PT REMAINED ALERT AND ORIENTED X 4 T/O ENTIRETY OF SHIFT. ABLE TO FOLLOW COMMANDS, MAKE PURPOSEFUL MOVEMENTS, AND MAKE NEEDS KNOWN. FREQUENT MOVEMENT ENCOURAGED. AFEBRILE AND DENIES PAIN. CONTINOUS CARDIAC MONITORING IN PLACE SHOWS SR, BP STABLE c MAP > 65. ON 2LPM O2 VIA NC c O2 SATURATION > 92%. CHEST TUBE REMOVED AT [address] MANCILLA. TOLERATED PO INTAKE AND MEDS WELL. PUREWICK IN PLACE, REFUSING TO USE BEDSIDE URINAL. REDNESS TO L FLANK CONTINUES TO IMPROVE. PG TO CHANDLER. WILL CONTINUE TO MONITOR AND REPORT TO ONCOMING RN.
[2025-01-12 19:43] VITALS: BP 144/77
[2025-01-12] MEDS ORDERED: Insulin Glargine-Yfgn 100 Unit/mL 3 ML SYR SC SCH (21:00)
[2025-01-12 23:41] VITALS: BP 155/85
[2025-01-13] MEDS ORDERED: Calcium Carbonate 500 MG Tab Chew PO PRN (00:30)
--- NOTE | 2025-01-13 00:46 | NUR ---
0020 PT C/O HEARTBURN, CALLED AND SPOKE WITH , NEW ORDER RECEIVED FOR TUMS PRN EVERY 4 HOURS
[2025-01-13 04:04] VITALS: BP 152/89
[2025-01-13 04:20] LABS: BASOPHILS ABSOLUTE AUTO 0.04 K/mm3 (0.00-0.23); BASOPHILS PERCENT AUTO 0 % (0-2); EOSINOPHILS ABSOLUTE AUTO 0.11 K/mm3 (0.00-0.68); EOSINOPHILS PERCENT AUTO 1 % (0-6); Hematocrit 33.2 % (37.0-53.0); Hemoglobin 11.2 g/dL (13.5-17.5); IMMATURE GRAN ABSOLUTE AUTO 0.56 K/mm3 (0.00-0.10); IMMATURE GRAN PERCENT AUTO 3 % (0-1); LYMPHOCYTES ABSOLUTE AUTO 1.98 K/mm3 (0.84-5.20); LYMPHOCYTES PERCENT AUTO 12 % (21-46); MONOCYTES ABSOLUTE AUTO 0.76 K/mm3 (0.16-1.47); MONOCYTES PERCENT AUTO 5 % (4-13); Mean Corpuscular HGB 30.6 pg (26.0-34.0); Mean Corpuscular HGB Conc 33.7 g/dL (31.5-36.5); Mean Corpuscular Volume 91 fL (80-100); Mean Platelet Volume 8.8 fL (9.1-12.4); NEUTROPHILS ABSOLUTE AUTO 13.43 K/mm3 (1.96-9.15); NEUTROPHILS PERCENT AUTO 80 % (41-73); Platelet Count 347 K/mm3 (150-400); RDW Standard Deviation 42.6 fL (35.1-46.3); Red Blood Cell Count 3.66 M/mm3 (4.30-5.90); White Blood Cell Count 16.88 K/mm3 (4.00-11.30)
[2025-01-13 04:48] LABS: Albumin, Blood 1.3 g/dL (3.4-5.0); Albumin/Globulin Ratio 0.3 (0.8-1.8); Bilirubin, Total 0.7 mg/dL (0.1-1.0); Bun/Creatinine Ratio 15.4 (12.0-20.0); Calcium, Blood 7.7 mg/dL (8.5-10.1); Creatinine, Blood 0.78 mg/dL (0.60-1.20); Globulin, Blood 3.9 g/dL (2.2-4.0); Potassium, Blood 3.2 mmol/L (3.5-5.5); Total Protein, Blood 5.2 g/dL (6.4-8.2)
[2025-01-13] MEDS ORDERED: Potassium Chloride 20 MEQ TabCR PO ONE ×2 (06:00→07:00)
--- NOTE | 2025-01-13 06:31 | NUR ---
SHIFT SUMMARY PT ALERT AND ORIENTED X4, FOLLOWS COMMANDS, ABLE TO MAKE NEEDS KNOWN, NEEDS ENCOURAGEMENT TO PERFORM ADLS INDEPENDENTLY WITH TURNING AND REPOSITIONING AND RAISING HOB , TMAX 100.1F, BP STABLE, O2 AT 2 LPM NC WITH SPO2 >92%, DENIES SOB OR CP, LEFT LATERAL CHEST DRESSING FROM CHEST TUBE REMOVAL CDI, NOTED REDNESS TO LEFT FLANK/CHEST DECREASING FROM MARKED AREA, PUREWICK REMAINS IN PLACE AND PATENT PER PT REQUEST AND REFUSAL OF BEDSIDE URINAL, POWERGLIDE TO LEFT UPPER ARM PATENT, NOTIFIED OF AM LABS RESULTS OF POTASSIUM 3.2 AND ALBUMIN 1.3, NEW ORDERS RECEIVED FOR KCL PO X1, PT MEDICATED X2 WITH PERCOCET 5 MG PO PER EMAR FOR C/O PAIN TO BACK, SIDE RAILS UP X2 CALL LIGHT IN REACH
[2025-01-13] MEDS ORDERED: Piperacillin/Tazobactam Sod 3.375 GM in NS 100 ML IV SCH (08:00)
[2025-01-13] MEDS ORDERED: Insulin Glargine-Yfgn 100 Unit/mL 3 ML SYR SC SCH (09:00)
[2025-01-13 10:06] VITALS: BP 147/78
--- NOTE | 2025-01-13 10:58 | NUR ---
ASSUMED CARE OF PATIENT AT APPROXIMATELY 0700. REPORT RECEIVED FROM MIKAYLA HARRIS. PT AWAKE IN BED, INTERACTING WITH STAFF APPROPRIATELY DURING BEDSIDE REPORT. MED NO TELE STATUS, ON 2 LPM O2. NO ACUTE NEEDS IDENTIFED AT THIS TIME. SEE SHIFT ASSESSMENT FOR FULL DETAILS.
--- NOTE | 2025-01-13 17:30 | NUR ---
SHIFT SUMMARY NO ACUTE CHANGES THIS SHIFT. PT REMAINS ALERT AND ORIENTED X 4, FOLLOWING COMMANDS, MAKING PURPOSEFUL MOVEMENTS, AND MAKING NEEDS KNOWN. AFEBRILE. MEDICATED ONCE FOR PAIN PER EMAR c GOOD BENEFIT. REMAINS ON 2LPM O2 VIA NC WITH ORDER TO WEAN TOLERATED. PUREWICK REMOVED FOR TRANSPORT, BRIEF IN PLACE. PG TO ESTELLA REMAINS PATENT. WILL CONTINUE TO MONITOR UNTIL TRANSFER TO MEDICAL FLOOR.
--- NOTE | 2025-01-13 18:00 | NUR ---
PT ESCORTED BY PCT VIA WHEELCHAIR TO ROOM 358. BELONGINGS RETURNED.
--- NOTE | 2025-01-13 18:30 | NUR ---
PATIENT TRANSFERRED FROM ICU 7 PATIENT ALERT AND ON 2L NC. STAND PIVOT TO BED. RESP SHALLOW WITH WEAK COUGH. PATIENT STATES CONSISTANT PAIN TO LEFT FLANK THAT IS TOLERABLE NOW. IV VANCO STARTED. PATIENT WILL REQUIRE A PICC LINE FOR WHITE SPOOLER ANTIBIOTICS AND RELAYED THIS TO MY ELECTRICAL ENGINEER. PATIENT AND RN REPORT CONTINENT B/B. WAS ON MALE PUREWICK DOWNSTAIRS BUT EDUCATED PATIENT ON IMPORTANCE OF MOVEMENT AND USING HIS INCENTIVE ILIANA. DIRECTOR OF EDUCATION AND TRAINING BAKARI CALLED HOSPITALIST TO RESTART HOME WELLBUTRIN PATIENT HAS HAD LITTLE MOTIVATION TO PARTICIPATE IN THERAPIES. CHEST TUBE REMOVAL SITE TO LEFT UPPER FLANK DRESSING INTACT. MARKINGS NOTED FROM RASH THAT WAS CAUSED BY TPA THAT WAS PUSHED THROUGH TUBE PER DIRECTOR OF EDUCATION AND TRAINING. RASH IS BARELY NOTFICABLE NOW WITH SLIGHT REDNESS.
[2025-01-13 19:55] VITALS: BP 165/85
[2025-01-13] MEDS ORDERED: buPROPion HCL 150 MG TAB.SR.12H PO SCH (21:00)
[2025-01-14 02:34] VITALS: BP 162/91
[2025-01-14 05:20] LABS: BASOPHILS ABSOLUTE AUTO 0.06 K/mm3 (0.00-0.23); BASOPHILS PERCENT AUTO 0 % (0-2); EOSINOPHILS ABSOLUTE AUTO 0.04 K/mm3 (0.00-0.68); EOSINOPHILS PERCENT AUTO 0 % (0-6); Hematocrit 35.2 % (37.0-53.0); IMMATURE GRAN ABSOLUTE AUTO 0.26 K/mm3 (0.00-0.10); IMMATURE GRAN PERCENT AUTO 2 % (0-1); LYMPHOCYTES ABSOLUTE AUTO 1.71 K/mm3 (0.84-5.20); LYMPHOCYTES PERCENT AUTO 11 % (21-46); MONOCYTES ABSOLUTE AUTO 0.68 K/mm3 (0.16-1.47); MONOCYTES PERCENT AUTO 4 % (4-13); Mean Corpuscular HGB 30.9 pg (26.0-34.0); Mean Corpuscular HGB Conc 34.1 g/dL (31.5-36.5); Mean Corpuscular Volume 91 fL (80-100); Mean Platelet Volume 8.5 fL (9.1-12.4); NEUTROPHILS ABSOLUTE AUTO 13.33 K/mm3 (1.96-9.15); NEUTROPHILS PERCENT AUTO 83 % (41-73); Platelet Count 394 K/mm3 (150-400); RDW Coefficient Variation 12.6 % (11.7-14.2); RDW Standard Deviation 41.5 fL (35.1-46.3); Red Blood Cell Count 3.88 M/mm3 (4.30-5.90); White Blood Cell Count 16.08 K/mm3 (4.00-11.30)
--- NOTE | 2025-01-14 05:38 | NUR ---
SUMMARY: PT A/OX4, CALLS APPROPRIATELY TO SPECIFY NEEDS AND IS COOPERATIVE W/CARE. AFFECT IS WITHDRAWN AND DEFENSIVE AND HE REQUIRES ENCOURAGEMENT TO PERFORM ADL'S AND PARTICIPATE IN TASKS D/T SEEMINGLY LACKING MOTIVATION. HE'S CAPABLE BSC USE AND AMBULATING W/CANE OR FWW BUT PREFERS URINAL WHILE LYING IN BED. PT WAS ALSO INCONTINENT W/ATTENDS + LINEN CHANGED PRN. IV ABX RECEIVED FOR PNM AND PICC LINE NEEDED PRIOR TO D/C FOR LPN CARE MANAGER OUTPT ABX. DEEP BX AND COUGHING ENCOURAGED TO IMPROVE COARSE LS AND RT ALERTED OF NEED FOR FLUTTER VALVE. HE WAS TITRATED TO 1L O2 VIA NC W/SPO2 WNL. DX IS C/D/I TO PRIOR L.FLANK CHEST TUBE SITE AND SURROUNDING FAINT RASH IS IMPROVING AND WITHIN MARKED REGION. NO ACUTE CHANGES, VSS/AFEBRILE. WCTM/REPORT TO DAY RN.
[2025-01-14 05:47] LABS: Alanine Aminotransfer (ALT/SGP 50 U/L (12-78); Albumin, Blood 1.4 g/dL (3.4-5.0); Albumin/Globulin Ratio 0.3 (0.8-1.8); Alk Phos 77 U/L (50-136); Anion Gap 6 mmol/L (3-11); Aspartate Aminotrans (AST/SGOT 47 U/L (12-37); Bilirubin, Total 0.4 mg/dL (0.1-1.0); Blood Urea Nitrogen 12 mg/dL (8-24); Bun/Creatinine Ratio 16.2 (12.0-20.0); CO2, Blood 36 mmol/L (21-32); Calcium, Blood 7.7 mg/dL (8.5-10.1); Chloride, Blood 94 mmol/L (98-108); Creatinine, Blood 0.74 mg/dL (0.60-1.20); Globulin, Blood 4.3 g/dL (2.2-4.0); Glomerular Filtration Rate 101 (60-); Glucose, Blood 74 mg/dL (70-99); Potassium, Blood 2.9 mmol/L (3.5-5.5); Sodium, Blood 133 mmol/L (136-145); Total Protein, Blood 5.7 g/dL (6.4-8.2); Vancomycin, Trough 16.5 ug/mL (5.0-10.0)
[2025-01-14] MEDS ORDERED: Magnesium Sulf 2 GM/Water 50ML 50 ML IV ONE (07:10)
[2025-01-14] MEDS ORDERED: Potassium Chloride 40 MEQ in NS 250 ML IV ONE (07:15)
[2025-01-14 07:25] VITALS: BP 165/84
[2025-01-14] MEDS ORDERED: Potassium Chloride 10 Meq Tablet SA PO ONE (08:00)
[2025-01-14 14:24] LABS: Bun/Creatinine Ratio 17.9 (12.0-20.0); Calcium, Blood 7.9 mg/dL (8.5-10.1); Creatinine, Blood 0.78 mg/dL (0.60-1.20); Potassium, Blood 3.5 mmol/L (3.5-5.5)
[2025-01-14 16:49] VITALS: BP 149/80
[2025-01-14 19:44] VITALS: BP 141/78
[2025-01-15 04:37] VITALS: BP 153/83
--- NOTE | 2025-01-15 04:58 | NUR ---
SHIFT SUMMARY PT ALERT ORIENTED X 4 ABLE TO VERBALIZE NEEDS CALLS APPROPRIATELY. HES BEEN USING THE URINAL THIS SHIFT AND IS CONTINENT. HES DUE TO HAVE A PICC LINE PLACED TODAY SO HE CAN DO OUTPATIENT ANTIBIOTICS. HES BEEN ACCEPTED AT [facility]. HE REMAINS ON VANCO ORDERED FOR NECROTIZING PNEUMONIA. NO C/O PAIN THIS SHIFT. HAS A NONPRODUCTIVE COUGH. VSS ON RA SATTING AT 92-93%. 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 FS DONE AC AND HS WAS 235. HE HAS A POWERGLIDE TO HIS LT ARM THATS SL. RESTING IN BED AT THIS TIME WITH CALL LIGHT IN REACH
[2025-01-15 06:00] LABS: BASOPHILS ABSOLUTE AUTO 0.06 K/mm3 (0.00-0.23); BASOPHILS PERCENT AUTO 0 % (0-2); EOSINOPHILS ABSOLUTE AUTO 0.07 K/mm3 (0.00-0.68); EOSINOPHILS PERCENT AUTO 1 % (0-6); Hematocrit 33.4 % (37.0-53.0); Hemoglobin 11.2 g/dL (13.5-17.5); IMMATURE GRAN ABSOLUTE AUTO 0.18 K/mm3 (0.00-0.10); IMMATURE GRAN PERCENT AUTO 1 % (0-1); LYMPHOCYTES ABSOLUTE AUTO 1.69 K/mm3 (0.84-5.20); LYMPHOCYTES PERCENT AUTO 11 % (21-46); MONOCYTES ABSOLUTE AUTO 0.79 K/mm3 (0.16-1.47); MONOCYTES PERCENT AUTO 5 % (4-13); Mean Corpuscular HGB 30.5 pg (26.0-34.0); Mean Corpuscular HGB Conc 33.5 g/dL (31.5-36.5); Mean Corpuscular Volume 91 fL (80-100); Mean Platelet Volume 8.7 fL (9.1-12.4); NEUTROPHILS ABSOLUTE AUTO 12.04 K/mm3 (1.96-9.15); NEUTROPHILS PERCENT AUTO 81 % (41-73); Platelet Count 437 K/mm3 (150-400); RDW Coefficient Variation 12.8 % (11.7-14.2); Red Blood Cell Count 3.67 M/mm3 (4.30-5.90); White Blood Cell Count 14.83 K/mm3 (4.00-11.30)
[2025-01-15 06:25] LABS: Albumin, Blood 1.4 g/dL (3.4-5.0); Albumin/Globulin Ratio 0.3 (0.8-1.8); Bilirubin, Total 0.5 mg/dL (0.1-1.0); Calcium, Blood 7.7 mg/dL (8.5-10.1); Creatinine, Blood 0.8 mg/dL (0.60-1.20); Globulin, Blood 4.5 g/dL (2.2-4.0); Potassium, Blood 3.2 mmol/L (3.5-5.5); Total Protein, Blood 5.9 g/dL (6.4-8.2)
[2025-01-15] MEDS ORDERED: Insulin Regular 100 UNIT/ML 10ML Vial SC SCH (07:30)
[2025-01-15 07:31] VITALS: BP 164/86
[2025-01-15] MEDS ORDERED: Potassium Chloride 20 MEQ TabCR PO ONE ×2 (09:00→11:35)
--- NOTE | 2025-01-15 09:00 | NUR ---
pt laying in bed watching tv, a/ox4, pleasant and cooperative with care, follows commands well, denies pain, lungs are clear in upper [place], course in bases, resp even and unlabored, on r/a, no cough noted at this time, hrr, no edema noted, ppp+1, cap refill <3 sec, vs stable, afebrile, power glide to rob site is clear and patent, will recieve picc for superintendent terminal abx, skin c/w/d, tiffanie mast, call light in reach.
--- NOTE | 2025-01-15 14:53 | NUR ---
pt will be transfered to [facility] at 1500, report was called to nurse Armand. picc line was placed to [facility], power glide removed intact to [place], dressing applied. tolerated well. pt is aware he will be picked up at 1500. call light in reach.
--- NOTE | 2025-01-15 15:17 | NUR ---
transport here to take pt to [facility]. she has packet. will go via wheelchair with all his belongings.
[2025-01-16] MEDS ORDERED: Potassium Chloride 20 MEQ TabCR PO SCH (09:00)
[2025-01-16 09:33] LABS: Influenza virus A RNA Detected (NOT DETECT)
== END 2025-01-15 15:31 | DRG 871 ==
LOC: ER 11:58 → ICUE 16:13 → ERHOLD 16:13 → ICUE 20:48 → MEDS 01-13 18:06 → ENPENDDIS 01-15 13:03 → MEDS 01-15 15:31
PROVIDERS: Family Medicine; Hospitalist; Internal Medicine Critical Care Medicine; Physician Assistant; Registered Nurse; Student in an Organized Health Care Education/Training Program; ADMIT Internal Medicine
PROC: 0W9B30Z Drainage of Left Pleural Cavity with Drainage Device, Percutaneous Approach (ICD-10-PCS; 2025-01-06)
PROC: 5A09357 Assistance with Respiratory Ventilation, Less than 24 Consecutive Hours, Continuous Positive Airway Pressure (ICD-10-PCS; 2025-01-06)
PROC: 3E03329 Introduction of Other Anti-infective into Peripheral Vein, Percutaneous Approach (ICD-10-PCS; principal; 2025-01-07)
PROC: 5A0955A Assistance with Respiratory Ventilation, Greater than 96 Consecutive Hours, High Flow/Velocity Cannula (ICD-10-PCS; 2025-01-07)
PROC: 3E0L317 Introduction of Other Thrombolytic into Pleural Cavity, Percutaneous Approach (ICD-10-PCS; 2025-01-07)
PROC: 3E0L3GC Introduction of Other Therapeutic Substance into Pleural Cavity, Percutaneous Approach (ICD-10-PCS; 2025-01-07)
DX: A41.89 Other specified sepsis (principal); E11.10 Type 2 diabetes mellitus with ketoacidosis without coma; J10.01 Influenza due to other identified influenza virus with the same other identified influenza virus pneumonia; R65.21 Severe sepsis with septic shock; J96.01 Acute respiratory failure with hypoxia; J86.9 Pyothorax without fistula; J15.212 Pneumonia due to Methicillin resistant Staphylococcus aureus; J85.0 Gangrene and necrosis of lung; E87.1 Hypo-osmolality and hyponatremia; J90 Pleural effusion, not elsewhere classified; L03.90 Cellulitis, unspecified; J43.9 Emphysema, unspecified; E87.6 Hypokalemia; Z88.5 Allergy status to narcotic agent; Z98.1 Arthrodesis status; Z99.81 Dependence on supplemental oxygen
CPT/HCPCS: 0528U; 32551; 32554; 36415; 36569; 71045; 71046; 71260; 74160; 80048; 80053; 80202; 81001; 82010; 82042; 82803; 82945; 82947; 83036; 83605; 83615; 83735; 83986; 84100; 84157; 84478; 85025; 87040; 87070; 87077; 87147; 87186; 87205; 87428-QW; 88108; 88305; 89051; 93005; 93010; 94640; 94644; 94660; 94664; 94760; 94762; 96365-59; 96368; 97110; 97162; 97165; 97530; 97535; 99285-25; A9270; C1751; J0456; J0696; J1650; J1815; J2185; J2405; J2543; J2997; J3010; J3370; J3475; J3480; J7030; J7040; J7050; J7060; J7120; Q9967

== ENCOUNTER 2025-01-28 13:56 | Inpatient (IN) | payer OTHER, MEDICARE ==
[~2025-01-28] VITALS: Ht 175.3 cm; Wt 73.7 kg
[2025-01-28 14:50] LABS: BASOPHILS ABSOLUTE AUTO 0.08 K/mm3 (0.00-0.23); BASOPHILS PERCENT AUTO 1 % (0-2); EOSINOPHILS ABSOLUTE AUTO 0.31 K/mm3 (0.00-0.68); EOSINOPHILS PERCENT AUTO 3 % (0-6); Hematocrit 33.4 % (37.0-53.0); Hemoglobin 11.5 g/dL (13.5-17.5); IMMATURE GRAN ABSOLUTE AUTO 0.27 K/mm3 (0.00-0.10); IMMATURE GRAN PERCENT AUTO 2 % (0-1); LYMPHOCYTES ABSOLUTE AUTO 1.57 K/mm3 (0.84-5.20); LYMPHOCYTES PERCENT AUTO 13 % (21-46); MONOCYTES ABSOLUTE AUTO 0.75 K/mm3 (0.16-1.47); MONOCYTES PERCENT AUTO 6 % (4-13); Mean Corpuscular HGB Conc 34.4 g/dL (31.5-36.5); Mean Corpuscular Volume 87 fL (80-100); NEUTROPHILS ABSOLUTE AUTO 8.85 K/mm3 (1.96-9.15); NEUTROPHILS PERCENT AUTO 75 % (41-73); Platelet Count 298 K/mm3 (150-400); RDW Coefficient Variation 12.3 % (11.7-14.2); RDW Standard Deviation 39.3 fL (35.1-46.3); Red Blood Cell Count 3.83 M/mm3 (4.30-5.90); White Blood Cell Count 11.83 K/mm3 (4.00-11.30)
[2025-01-28 15:07] LABS: Albumin, Blood 2.3 g/dL (3.4-5.0); Albumin/Globulin Ratio 0.5 (0.8-1.8); Bilirubin, Total 0.3 mg/dL (0.1-1.0); Bun/Creatinine Ratio 22.8 (12.0-20.0); Calcium, Blood 8.4 mg/dL (8.5-10.1); Creatinine, Blood 4.48 mg/dL (0.60-1.20); Globulin, Blood 4.9 g/dL (2.2-4.0); Potassium, Blood 5.5 mmol/L (3.5-5.5); Total Protein, Blood 7.2 g/dL (6.4-8.2)
[2025-01-28] MEDS ORDERED: NS 1,000 ML IV SCH (15:35)
[2025-01-28] MEDS ORDERED: Ondansetron HCl 2 MG / ML 2ML Vial IV PRN (17:20)
[2025-01-28] MEDS ORDERED: Acetaminophen 325 MG TABLET PO PRN (17:20)
[2025-01-28] MEDS ORDERED: FLU VACC TS2024-25(6MOS UP)/PF 45 MCG/0.5 ML SYRINGE IM SCH (17:20)
[2025-01-28] MEDS ORDERED: Sodium Bicarb 8.4% Inj 100 MEQ in Sodium Chloride 0.45% 1,000 ML IV SCH (17:45)
[2025-01-28] MEDS ORDERED: Linezolid 600MG/Iso-Dext 300ML 300 ML IV SCH (18:00)
--- NOTE | 2025-01-28 19:37 | NUR ---
PT ARRIVED FROM ED TO ROOM 331 AT 1840, GOURNEY TO BED SLIDE TX. PT A/O X4, ORIENTED TO ROOM AND CALL LIGHT. PL;ACED ON DROPLET PRECAUTION. TELE SET UP. STATES HE IS HAVING BILAT FLANK PAIN, INTERMITTANTLY CRAMPING AND WOULD LIKE SOMETHING FOR PAIN. SET UP PT'S IVF, PICC FLUSHED WITH 30CC, VERY HARD FLUSH, DOES NOT DRAW BACK BLOOD. ASSESSED PT'S SKIN, NOTED PETECHAI TO BILAT ANKLES, ARMS AND TRUNK. GOT PT DINNER AND FLUIDS TO DRINK. 24 HR UUN STARTED 1800- REPORTED TO CAT LUNA RN
[2025-01-28 20:06] VITALS: BP 179/100
[2025-01-28] MEDS ORDERED: B-1100 M1 PO (20:44)
[2025-01-28] MEDS ORDERED: VISBIOME 112.51 EACH PO (20:45)
[2025-01-28] MEDS ORDERED: ACET325 PO (20:46)
[2025-01-28] MEDS ORDERED: BUPROPION XL150 M1 PO (20:48)
[2025-01-28] MEDS ORDERED: Calcium Carbon500 MG PO (20:49)
[2025-01-28] MEDS ORDERED: DOCU100 PO (20:49)
[2025-01-28] MEDS ORDERED: BISA10S PR (20:51)
[2025-01-28] MEDS ORDERED: ONDA4 PO (20:53)
[2025-01-28] MEDS ORDERED: INSULANPEN SC (20:53)
[2025-01-28] MEDS ORDERED: MULVITA PO (20:53)
[2025-01-28] MEDS ORDERED: Percocet 5-3251 EACH PO (20:54)
[2025-01-28] MEDS ORDERED: Docusate Sodium 100 MG Cap PO SCH (21:00)
[2025-01-28] MEDS ORDERED: Lactobacil 2-S.Thermo-Bifido 1 1 Cap PO SCH (21:00)
[2025-01-29] VITALS (7 sets, daily range): BP systolic 133–178; BP diastolic 78–100
[2025-01-29] MEDS ORDERED: Bisacodyl 10 MG Supp PR PRN (00:05)
[2025-01-29] MEDS ORDERED: OxyCODONE 5 mg/Acetamin 325 mg TABLET PO PRN (00:05)
[2025-01-29 05:24] LABS: BASOPHILS ABSOLUTE AUTO 0.09 K/mm3 (0.00-0.23); BASOPHILS PERCENT AUTO 1 % (0-2); EOSINOPHILS ABSOLUTE AUTO 0.37 K/mm3 (0.00-0.68); EOSINOPHILS PERCENT AUTO 4 % (0-6); Hematocrit 32.1 % (37.0-53.0); Hemoglobin 11.1 g/dL (13.5-17.5); IMMATURE GRAN ABSOLUTE AUTO 0.33 K/mm3 (0.00-0.10); IMMATURE GRAN PERCENT AUTO 4 % (0-1); LYMPHOCYTES PERCENT AUTO 18 % (21-46); MONOCYTES ABSOLUTE AUTO 0.72 K/mm3 (0.16-1.47); MONOCYTES PERCENT AUTO 8 % (4-13); Mean Corpuscular HGB 30.2 pg (26.0-34.0); Mean Corpuscular HGB Conc 34.6 g/dL (31.5-36.5); Mean Corpuscular Volume 88 fL (80-100); NEUTROPHILS ABSOLUTE AUTO 6.19 K/mm3 (1.96-9.15); NEUTROPHILS PERCENT AUTO 66 % (41-73); Platelet Count 303 K/mm3 (150-400); RDW Coefficient Variation 12.4 % (11.7-14.2); RDW Standard Deviation 39.7 fL (35.1-46.3); Red Blood Cell Count 3.67 M/mm3 (4.30-5.90)
[2025-01-29 05:50] LABS: Albumin, Blood 2.1 g/dL (3.4-5.0); Albumin/Globulin Ratio 0.5 (0.8-1.8); Bilirubin, Total 0.3 mg/dL (0.1-1.0); Bun/Creatinine Ratio 24.7 (12.0-20.0); Calcium, Blood 8.3 mg/dL (8.5-10.1); Creatinine, Blood 3.73 mg/dL (0.60-1.20); Globulin, Blood 4.3 g/dL (2.2-4.0); Magnesium, Blood 1.9 mg/dL (1.6-2.4); Potassium, Blood 4.7 mmol/L (3.5-5.5); Total Protein, Blood 6.4 g/dL (6.4-8.2)
--- NOTE | 2025-01-29 05:57 | NUR ---
SHIFT SUMMARY PT A&OX4 AND ANSWERS QUESTIONS APPROPRIATELY. PT RECEIVED SCHEDULED AND PRN MEDICATIONS WITH NO ADVERSE EFFECTS. PT HAS BERNAL CATH THAT IS PATENT AND DRAINING TO GRAVITY PINK URINE. DRAINAGE BAG ON ICE FOR 24HR SPECIMEN, REMAINDER OF SPECIMEN ON ICE IN RESTROOM. PT SPENT MOST OF SHIFT IN BED WITH EYES CLSOED. NO ACUTE EVENTS AT THIS TIME. VSS, NO COMPLAINTS OF CP/PRESSURE. FALL PRECAUTIONS IN PLACE. REPOSITIONED INDEPENDENTLY. CALL LIGHT IN REACH.
[2025-01-29] MEDS ORDERED: Insulin Human Lispro 100 Units/ML 3ML Syringe SC SCH (07:30)
[2025-01-29] MEDS ORDERED: Insulin Glargine-Yfgn 100 Unit/mL 3 ML SYR SC SCH (09:00)
[2025-01-29] MEDS ORDERED: Thiamine HCl 100 MG Tab PO SCH (09:00)
[2025-01-29] MEDS ORDERED: Heparin Sodium 5000 Units/ML 1ML MDV SC SCH (09:00)
[2025-01-29] MEDS ORDERED: Multivitamins 1 Tab PO SCH (09:00)
--- NOTE | 2025-01-29 17:34 | NUR ---
SHIFT SUMMARY NO ACUTE CHANGES. PT REMAINS A/Ox4, ABLE TO MAKE NEEDS KNOWN, USES CALL LIGHT APPROPRIATELY. BERNAL PATENT AND DRAINING CLEAR YELLOW URINE. 24 HR URINE COMPLETES AT 1800. PICC LINE SLOW TO FLUSH, DOES NOT DRAW LAB. IV ON LEFT ARM SALINE LOCKED, PATENT. PT DENIES PAIN. 2 BM TODAY. FAIR APPETITE. PT/OT ORDERED DUE TO PT NOT BEING OUT OF BED X5 DAYS. TELE IN PLACE - NSR @ 77 WITH BBB. BP REMAINS HYPERTENSIVE. PT CURRENTLY RESTING IN HOSPITAL BED WITH BED IN LOWEST POSITION AND CALL LIGHT WITHIN REACH. PLAN FOR PT TO DISCHARGE BACK TO [facility] - PT AGREES TO RETURN TO [facility] TO FINISH ANTIBIOTIC INFUSIONS AND THEN MOVE [facility].
[2025-01-29 18:56] LABS: Sodium, Urine 64 mmol/L (20-110)
[2025-01-30 03:33] VITALS: BP 123/79
--- NOTE | 2025-01-30 03:35 | NUR ---
SHIFT SUMMARY NO ACUTE EVENTS DURING THIS SHIFT. VSS, TELE:SR @91 WITH BB. PT DENIES PAIN/PRESSURE/SOB. BERNAL DRAINING TEA COLOR URINE. PT DENIES DISCOMFORT WITH THE BERNAL. PT REMAINS IN BEDREST. PT REPORTS WEAKNESS. PT IS A/O X4, ABLE TO MAKE HIS NEEDS KNOWN, COOPERATIVE WITH CARE. BED AT THE LOWEST POSITION, CALL LIGHT W/I REACH.
--- NOTE | 2025-01-30 04:32 | NUR ---
NEW T-ORDER FROM ON-CALL HOSPITALIST : CEPACOL THROAT LOZENGE 1 TAB Q2HRS PRN. ENTERED TO [employer], SEE EMAR. NO ADDITIONAL NEW ORDERS AT THIS TIME.
[2025-01-30] MEDS ORDERED: DEXTROMETHORPHAN/BENZOCAINE 1 EACH LOZENGE MT PRN (04:35)
[2025-01-30] MEDS ORDERED: NS 250 ML IV PRN (05:10)
[2025-01-30 05:26] LABS: Hematocrit 34.9 % (37.0-53.0); Hemoglobin 11.7 g/dL (13.5-17.5); Mean Corpuscular HGB 29.5 pg (26.0-34.0); Mean Corpuscular HGB Conc 33.5 g/dL (31.5-36.5); Mean Corpuscular Volume 88 fL (80-100); Mean Platelet Volume 8.5 fL (9.1-12.4); Platelet Count 314 K/mm3 (150-400); RDW Coefficient Variation 12.1 % (11.7-14.2); RDW Standard Deviation 39.1 fL (35.1-46.3); Red Blood Cell Count 3.97 M/mm3 (4.30-5.90); White Blood Cell Count 9.33 K/mm3 (4.00-11.30)
[2025-01-30 05:52] LABS: Albumin, Blood 2.2 g/dL (3.4-5.0); Anion Gap 11 mmol/L (3-11); Blood Urea Nitrogen 77 mg/dL (8-24); Bun/Creatinine Ratio 25.4 (12.0-20.0); CO2, Blood 24 mmol/L (21-32); Calcium, Blood 8.5 mg/dL (8.5-10.1); Chloride, Blood 102 mmol/L (98-108); Creatinine, Blood 3.03 mg/dL (0.60-1.20); Glomerular Filtration Rate 22 (60-); Glucose, Blood 109 mg/dL (70-99); Magnesium, Blood 1.8 mg/dL (1.6-2.4); Phosphorus, Blood 4.7 mg/dL (2.5-4.9); Potassium, Blood 4.4 mmol/L (3.5-5.5); Sodium, Blood 133 mmol/L (136-145)
[2025-01-30 07:11] VITALS: BP 149/91
[2025-01-30] MEDS ORDERED: DIABETIC TUSSI PO (15:07)
[2025-01-30] MEDS ORDERED: LINE600 IV (15:07)
[2025-01-30 15:18] VITALS: BP 149/95
--- NOTE | 2025-01-30 17:33 | NUR ---
SHIFT SUMMARY: PATIENT A/OX4, PLEASANT AND COOPERATIVE c CARE. PATIENT DENIES CP/PRESSURE, SOB, N/V AND DIZZINESS. TELE DC'D PER ORDER. PATIENT BERNAL DC'D AT 0952 AND HAS BEEN VOIDING T/O THE DAY WITHOUT ANY DIFFICULTIES. PATIENT RECEIVED IV ABX/SCHEDULED MEDS PER EMAR. VITAL SIGNS REVIEWED. PIV DC'D BY TOBIAS PATIENT DISCHARGE BACK TO [facility]. TR GIVEN TO WOODY LEAL AT 1521. PATIENT DISCHARGE c PICC LINE TO [facility] FOR 4 DAYS IV ABX PER ORDER. PATIENT DISCHARGE PACK[facility]. ALL PERSONAL BELONGINGS WERE SENT c THE PATIENT. PATIENT LEFT THE ROOM AT 1731 VIA W/CHAIR.
== END 2025-01-30 17:33 | disposition hospice, inpatient (51) | DRG 682 ==
LOC: ER 13:56 → MEDS 17:15 → ERHOLD 17:15 → MEDS 18:40 → ENPENDDIS 01-30 11:24 → MEDS 01-30 17:33
PROVIDERS: Emergency Medicine; Internal Medicine; Student in an Organized Health Care Education/Training Program; ADMIT Student in an Organized Health Care Education/Training Program
PROC: 02HV33Z Insertion of Infusion Device into Superior Vena Cava, Percutaneous Approach (ICD-10-PCS; principal; 2025-01-28)
DX: N17.9 Acute kidney failure, unspecified (principal); J15.212 Pneumonia due to Methicillin resistant Staphylococcus aureus; J86.9 Pyothorax without fistula; E87.1 Hypo-osmolality and hyponatremia; E87.20 Acidosis, unspecified; E87.5 Hyperkalemia; E11.65 Type 2 diabetes mellitus with hyperglycemia; D63.1 Anemia in chronic kidney disease; N18.30 Chronic kidney disease, stage 3 unspecified; N14.19 Nephropathy induced by other drugs, medicaments and biological substances; T36.8X5A Adverse effect of other systemic antibiotics, initial encounter; E11.22 Type 2 diabetes mellitus with diabetic chronic kidney disease; Z98.1 Arthrodesis status; Z88.5 Allergy status to narcotic agent
CPT/HCPCS: 36415; 71045; 76770; 80053; 80069; 82947; 83735; 84300; 85025; 85027; 97110; 97161; 97530; 99285-25; A9270; J1644; J1815; J2020; J7030

== ENCOUNTER → 2025-02-22 | Outpatient (CLI) | payer OTHER ==
[~2025-02-22] MED LIST: ACET325 PO; B-1100 M1 PO; BISA10S PR; BUPROPION XL150 M1 PO; Calcium Carbon500 MG PO; DIABETIC TUSSI PO; DOCU100 PO; INSULANPEN SC; LINE600 IV; MULVITA PO; ONDA4 PO; Percocet 5-3251 EACH PO; VISBIOME 112.51 EACH PO
[2025-02-23 13:32] LABS: Creatinine Urine 28.9 mg/dL (27.00-270.00); Microalbumin, Urine Quant. 29.6 mg/L (0.000-20.000); Protein, Urine Quantitative 9.3 mg/dL (0.0-11.9)
== END | disposition home or self-care (01) ==
LOC: LAB 10:49 → LAB SHORT 10:49
PROVIDERS: Internal Medicine Nephrology
DX: D63.1 Anemia in chronic kidney disease (principal); N18.2 Chronic kidney disease, stage 2 (mild); N25.81 Secondary hyperparathyroidism of renal origin; E55.9 Vitamin D deficiency, unspecified; E78.00 Pure hypercholesterolemia, unspecified; R76.9 Abnormal immunological finding in serum, unspecified; R94.6 Abnormal results of thyroid function studies; D52.8 Other folate deficiency anemias; D51.8 Other vitamin B12 deficiency anemias
CPT/HCPCS: 81050; 82043; 82570; 84156

== ENCOUNTER → 2025-07-07 | Outpatient (CLI) | payer OTHER ==
[2025-07-07 15:45] LABS: BASOPHILS ABSOLUTE AUTO 0.05 K/mm3 (0.00-0.23); BASOPHILS PERCENT AUTO 1 % (0-2); EOSINOPHILS ABSOLUTE AUTO 0.10 K/mm3 (0.00-0.68); EOSINOPHILS PERCENT AUTO 1 % (0-6); Hematocrit 41.3 % (37.0-53.0); Hemoglobin 14.0 g/dL (13.5-17.5); IMMATURE GRAN ABSOLUTE AUTO 0.04 K/mm3 (0.00-0.10); IMMATURE GRAN PERCENT AUTO 1 % (0-1); LYMPHOCYTES ABSOLUTE AUTO 2.51 K/mm3 (0.84-5.20); LYMPHOCYTES PERCENT AUTO 32 % (21-46); MONOCYTES ABSOLUTE AUTO 0.71 K/mm3 (0.16-1.47); MONOCYTES PERCENT AUTO 9 % (4-13); Mean Corpuscular HGB Conc 33.9 g/dL (31.5-36.5); Mean Corpuscular Volume 87 fL (80-100); NEUTROPHILS ABSOLUTE AUTO 4.52 K/mm3 (1.96-9.15); NEUTROPHILS PERCENT AUTO 57 % (41-73); NRBC ABSOLUTE 0.00 K/mm3 (0.00-0.02); NRBC Auto 0.0 /100 WBC (0.0-0.2); Platelet Count 250 K/mm3 (150-400); RDW Coefficient Variation 12.2 % (11.7-14.2); RDW Standard Deviation 39.0 fL (35.1-46.3)
== END ==
LOC: LAB 13:58 → LAB SHORT 13:58
PROVIDERS: Internal Medicine Hematology & Oncology
DX: D47.2 Monoclonal gammopathy (principal)
CPT/HCPCS: 85025